=== PATIENT | male | born 1955 | race Two or more races ===

== ENCOUNTER 2025-06-25 12:00 | Emergency (ER) | payer MEDICARE, MEDICAID, SELFPAY ==
[2025-06-25 13:00] VITALS: BP 118/82; PULSE 74; RESP 19; TEMP 37.2; O2SAT 98; BMI 25.7
--- NOTE | 2025-06-25 13:02 | XR_ITS ---
Examination: Shoulder,left, 3 views Technique: Shoulder AP internal rotation, AP external rotation, Y view shoulder, 3 views Exam date and time :June 25, 2025, 1303 hrs. Indications: Lifting injury to the shoulders 3 weeks ago shoulder pain. Findings: No shoulder fracture or dislocation. Moderate narrowing glenohumeral joint. AC joint separation 6 mm age-indeterminate Impression: AC joint separation, 6 mm, age indeterminate.
--- NOTE | 2025-06-25 13:02 | PD.EDRME ---
Rapid Medical Screening Exam RME Arrival date/time: 06/25/25 12:00 Chief Complaint: Extremity Injury, Upper Time Seen by Provider: 06/25/25 13:02 Vital signs: Vital Signs Temperature 98.9 F 06/25/25 13:00 Pulse Rate 74 06/25/25 13:00 Respiratory Rate 19 06/25/25 13:00 Blood Pressure 118/82 06/25/25 13:00 Pulse Oximetry (%) 98 06/25/25 13:00 Oxygen Delivery Method Room Air 06/25/25 13:00 Vital signs reviewed by provider: Yes RME Narrative: Patient presents with left shoulder pain after injury
--- NOTE | 2025-06-25 13:06 | PD.EDUPEX ---
Upper Extremity Injury RME/HPI General Chief Complaint: Extremity Injury, Upper Stated Complaint: LEFT SHOULDER PAIN AFTER HEAVY LIFTING 3WKS AGO Time Seen by Provider: 06/25/25 13:02 Source: patient Arrival date/time: 06/25/25 12:00 Mode of arrival: ambulatory Limitations: no limitations RME / HPI RME / HPI narrative: 69 year old male here today with left shoulder pain. He denies trauma or chronic disease. He states he was moving boxes at home a few days ago and has since developed pain. The shoulder pain is waking him up at night. He has an appt with his PCP in 4 days for this. He also endorses an intermittent stiff neck. No chest pain or abdominal pain. No distal parethesias. No fevers or chills. Related Data Previous Rx's ?Medication ?Instructions ?Recorded rifaximin 550 mg tablet (Xifaxan) 550 mg PO TID #42 tabs 11/08/23 ibuprofen 600 mg tablet 600 mg PO TID PRN pain #14 tabs 06/25/25 methocarbamol 750 mg tablet 750 mg PO TID #14 tabs 06/25/25 Allergies Allergy/AdvReac Type Severity Reaction Status Date / Time No Known Allergies Allergy Verified 06/25/25 12:01 Review of Systems Review of Systems Systems Reviewed: All systems reviewed, normal except as documented ED Exam General Limitations: Present no limitations General appearance: Present alert and in no apparent distress Head Head exam: Present atraumatic Eye Eye exam: Present normal appearance and PERRL ENT ENT exam: Present normal exam, normal oropharynx and mucous membranes moist Neck Neck exam: Present normal inspection, full ROM and trachea midline Chest Chest inspection: Present normal inspection and symmetric chest wall rise Respiratory Respiratory exam: Present normal lung sounds bilaterally Cardiovascular Cardiovascular exam: Present regular rate, normal rhythm and normal heart sounds Abdominal Exam Abdominal exam: Present soft and normal bowel sounds Extremities Exam Extremities exam: Present other (He is unable to abduct his left arm secondary to pain. He is mildly tender at the left lateral neck and upper trapezius. It Application Administrator strength is intact and symmetrical. ) Back Exam Back exam: Present normal inspection and full ROM Neurological Exam Neurological exam: Present alert and oriented X3 Psychiatric Psychiatric exam: Present normal affect and normal mood Skin Skin exam: Present warm, dry, intact and normal color Course Quality Measures none Orders Category Date Time Status XR shoulder LT min 2V Stat Exams 06/25/25 13:02 Completed CYCLObenzaPRINE [Flexeril] Med 06/25/25 13:09 Discontinued 10 mg PO X1 ONE HYDROcodone*/APAP 5/325 [[place] 5/325] Med 06/25/25 13:07 Discontinued 1 tab PO X1 ONE Ketorolac Inj [Toradol Inj] Med 06/25/25 13:02 Discontinued 15 mg IM X1 ONE Vital Signs Vital signs: Vital Signs Temperature 98.9 F 06/25/25 13:00 Pulse Rate 74 06/25/25 13:00 Respiratory Rate 19 06/25/25 13:00 Blood Pressure 118/82 06/25/25 13:00 Pulse Oximetry (%) 98 06/25/25 13:00 Oxygen Delivery Method Room Air 06/25/25 13:00 Extremity Injury MDM Narrative MDM Narrative:: 69 year old male here today with left shoulder pain. He denies trauma or chronic disease. He states he was moving boxes at home a few days ago and has since developed pain. The shoulder pain is waking him up at night. He has an appt with his PCP in 4 days for this. He also endorses an intermittent stiff neck. No chest pain or abdominal pain. No distal parethesias. No fevers or chills. On exam, he is non-toxic appearing. He has pain with ROM of his left shoulder. There is no warmth. Mild crepitus is noted. Plain films reveal a AC separation. This was discussed with the patient who confirms there was no impact injury or fall. He will be discharged with ibuprofen and Robaxin. He will follow up with his doctor for a recheck, consider further outpatient work up or interventions. Return here at any time for any emergent changes. Patient data External records reviewed:: None Clinical information provided by:: patient Social determinants that could affect healthcare access:: none Patient has the following chronic illnesses:: n/a How is presenting disease/condition affected by chronic disease/condition?: no chronic disease Evaluation data The following diagnostics were reviewed and interpreted by me:: radiology exam(s) Lab and/or radiology exams considered but not ordered:: n/a Interpretation Summary: a/c separation Medications / Prescriptions Medications or Prescriptions considered but not ordered:: n/a Medication administrations:: Medication Administration History Discontinued Medications Hydrocodone Bitart/Acetaminophen (Hydrocodone/Apap 5/325 Tablet) 1 tab PO X1 ONE Stop: 06/25/25 13:08 Last Admin: 06/25/25 13:44 Dose: Not Given Documented By: KEITH Non-Admin Reason: Discontinued Cyclobenzaprine HCl (Cyclobenzaprine 5 Mg Tablet) 10 mg PO X1 ONE Stop: 06/25/25 13:10 Last Admin: 06/25/25 13:41 Dose: 10 mg Documented By: KEITH Ketorolac Tromethamine (Ketorolac Inj 60 Mg/2 Ml Vial) 15 mg IM X1 ONE Stop: 06/25/25 13:03 Last Admin: 06/25/25 13:42 Dose: 15 mg Documented By: KEITH see above Consultations Consultation(s) initiated? (list below): No Diagnosis Upper Extremity Injury Differential Diagnosis: dislocation of shoulder and fracture of humerus Most likely diagnosis given after review of the tests above:: shoulder sprain Admission Indicated Admission indicated?: not indicated Admission Request Was there a request for admission?: No Disposition Plan Disposition Plan: Discharge Discharge Attestation Discharge Attestation: The patient and all family members were given an opportunity to ask questions and understood the discharge instructions. Discharge instructions specifically effects, indications for sooner follow up or return to the emergency department, and the expected course of current diagnosis. Patient condition: Stable Discharge Plan Plan Patient Disposition: HOME (Self Care) Patient condition on transfer: Stable Prescriptions/Referrals Prescriptions/Med Rec: New ibuprofen 600 mg tablet 600 mg PO TID PRN (Reason: pain) Qty: 14 0RF methocarbamol 750 mg tablet 750 mg PO TID Qty: 14 0RF No Action Xifaxan 550 mg tablet 550 mg PO TID Qty: 42 0RF Problem List Clinical Impression: Shoulder sprain Patient/Caregiver Discharge Instructions Education Materials: Treating?Strains and Sprains, ED Shoulder Sprain Additional Instructions: -Use the provided medication for symptomatic relief. -It is possible that you also have a bursitis or rotator cuff injury. -Follow up with your doctor next week, on Friday as planned. -Return here as needed for any emergent changes. Print Language: [place] Stand Alone Forms: [employer]ly Award Info., Patient Portal Info Letter
[2025-06-25 13:36] VITALS: BP 124/71; PULSE 69; RESP 17; TEMP 36.6; O2SAT 97
[2025-06-25] MEDS: KETOROLAC INJ 60 MG/2 ML VIAL 15 MG IM (13:42)
== END 2025-06-25 14:34 | disposition home or self-care (01) ==
PROVIDERS: Emergency Provider Emergency Medicine; PCP Physician Assistant
DX: S43.402A Unspecified sprain of left shoulder joint, initial encounter (principal); X58.XXXA Exposure to other specified factors, initial encounter
CPT/HCPCS: 73030; 96372; 99282; J1885; A9270